=== PATIENT | female | born 1980 | race Caucasian/White ===

== ENCOUNTER → 2020-03-23 13:25 | Outpatient (BNVA) | payer SELFPAY | PROVIDERS: Family Provider Nurse Practitioner Family; PCP Nurse Practitioner Family; Visit Provider Nurse Practitioner | DX: M25.521 Pain in right elbow (principal) | CPT/HCPCS: 84550 ==

== ENCOUNTER → 2020-04-26 11:02 | Outpatient (BNVA) | payer SELFPAY | PROVIDERS: Family Provider Nurse Practitioner Family; PCP Nurse Practitioner Family; Visit Provider Internal Medicine | DX: R76.8 Other specified abnormal immunological findings in serum (principal); Z79.899 Other long term (current) drug therapy; Z11.59 Encounter for screening for other viral diseases; Z11.1 Encounter for screening for respiratory tuberculosis; M32.9 Systemic lupus erythematosus, unspecified; D86.9 Sarcoidosis, unspecified; M25.50 Pain in unspecified joint; F17.210 Nicotine dependence, cigarettes, uncomplicated; Z79.52 Long term (current) use of systemic steroids | CPT/HCPCS: 36415; 80053; 82550; 82955; 84443; 85651; 86140; 86480; 86704; 86803; 86812; 87340; 96372; 99204; J1030 ==

== ENCOUNTER → 2020-05-20 13:43 | Outpatient (BNVA) | payer SELFPAY | PROVIDERS: Family Provider Nurse Practitioner Family; PCP Nurse Practitioner Family; Visit Provider Internal Medicine | DX: R76.8 Other specified abnormal immunological findings in serum (principal); R70.0 Elevated erythrocyte sedimentation rate; Z79.899 Other long term (current) drug therapy; Z79.52 Long term (current) use of systemic steroids; F17.210 Nicotine dependence, cigarettes, uncomplicated; M06.9 Rheumatoid arthritis, unspecified; M32.9 Systemic lupus erythematosus, unspecified; D86.9 Sarcoidosis, unspecified | CPT/HCPCS: 99214 ==

== ENCOUNTER → 2020-11-18 15:10 | Outpatient (BNVA) | payer SELFPAY | PROVIDERS: Family Provider Nurse Practitioner Family; PCP Nurse Practitioner Family; Visit Provider Internal Medicine | DX: M06.9 Rheumatoid arthritis, unspecified (principal); R70.0 Elevated erythrocyte sedimentation rate; R76.8 Other specified abnormal immunological findings in serum; F17.210 Nicotine dependence, cigarettes, uncomplicated | CPT/HCPCS: 99214 ==

== ENCOUNTER → 2021-03-21 08:28 | Outpatient (BNVA) | payer SELFPAY | PROVIDERS: Family Provider Nurse Practitioner Family; PCP Nurse Practitioner Family; Visit Provider Internal Medicine | DX: M06.9 Rheumatoid arthritis, unspecified (principal); R70.0 Elevated erythrocyte sedimentation rate; R76.8 Other specified abnormal immunological findings in serum; Z79.899 Other long term (current) drug therapy; Z79.52 Long term (current) use of systemic steroids; F17.200 Nicotine dependence, unspecified, uncomplicated | CPT/HCPCS: 99213; 99214 ==

== ENCOUNTER 2021-09-05 08:49 | Outpatient (CLI) | payer OTHER, SELFPAY ==
--- NOTE | 2021-09-05 09:22 | MM_ITS ---
WS: [id number] BILATERAL DIGITAL SCREENING MAMMOGRAPHY WITH CAD CLINICAL INFORMATION: SCREENING HISTORY: Screening mammogram. No current complaints. COMPARISON: None. TECHNIQUE: Bilateral CC and MLO views. FINDINGS: Scattered fibroglandular densities bilaterally. Slightly spiculated 9 mm focal asymmetric density upp er outer RIGHT breast. Recommend further evaluation with spot compression views and ultrasound. Incidental punctate calcifications LEFT breast. Additional 6 mm asymmetric density upper outer LEFT b reast best seen on the MLO view.Recommend spot compression views and ultrasound in further evaluation . MM/[id number] IMPRESSION: BI-RADS: 0-Incomplete: Need additional imaging evaluation FOLLOW UP: Need Additional Imaging Recommend further evaluation RIGHT and LEFT breast with spot compression views and ultrasound.
== END 2021-09-05 08:50 | disposition home or self-care (01) ==
LOC: RADSHAW 08:50
PROVIDERS: Family Provider Nurse Practitioner Family; PCP Nurse Practitioner Family; Visit Provider Nurse Practitioner Family
DX: Z12.31 Encounter for screening mammogram for malignant neoplasm of breast (principal)
CPT/HCPCS: 77067

== ENCOUNTER 2021-10-10 08:00 | Outpatient (CLI) | payer OTHER, SELFPAY ==
--- NOTE | 2021-10-10 08:07 | MM_ITS ---
WS: [id number] BILATERAL 3D TOMOSYNTHESIS DIGITAL MAMMOGRAPHY WITH CAD CLINICAL INFORMATION: ABNORMAL/INCONCLUSIVE FINDING ON IMAGING OF BREAST COMPARISON: September 05, 2021 TECHNIQUE: 9 views of the bilateral breasts were obtained. FINDINGS: Scattered fibroglandular densities of the right breast. 9 mm asymmetric density upper outer RIGHT see ast is unchanged. Ultrasound is pending. Additional stable 6 mm asymmetric density upper outer LEFT b reast. Ultrasound is pending. ULTRASOUND BREAST BILATERAL TECHNIQUE: Ultrasound bilateral breast focused area of concern. CLINICAL INFORMATION: ABNORMAL/INCONCLUSIVE FINDING ON IMAGING OF BREAST COMPARISON: None. FINDINGS: RIGHT BREAST: Ultrasound RIGHT breast 900-12:00 position demonstrates 5 x 6 x 4 mm simple cyst at the 9:00 position. LEFT BREAST: Ultrasound LEFT breast at the 12 to 3:00 position. Small simple cysts measuring 8 x 8 x 3 mm and 9 x 7 x 4 mm at the 12:00 and 100 positions respectively. MM/[id number] IMPRESSION: BI-RADS: 2-Benign FOLLOW UP: 1 Year Follow-up Recommend return to annual screening mammography.
== END 2021-10-10 08:01 | disposition home or self-care (01) ==
PROVIDERS: PCP Nurse Practitioner Family; Visit Provider Nurse Practitioner Family
DX: R92.8 Other abnormal and inconclusive findings on diagnostic imaging of breast (principal)
CPT/HCPCS: 76642; 77062

== ENCOUNTER 2023-08-13 19:59 | Inpatient (IN) | payer MEDICAID, SELFPAY ==
[2023-08-13 20:05] VITALS: BP 157/93; PULSE 112; RESP 18; O2SAT 98; BMI 27.4
--- NOTE | 2023-08-13 20:38 | ECG_ITS ---
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 Measurements Intervals [place] Rate: 93 P: 66 WV: 140 QRS: 59 QRSD: 85 T: 24 QT: 339 QTc: 424 Interpretive Statements SINUS RHYTHM WITH SINUS ARRHYTHMIA MODERATE ST DEPRESSION [0.05+ mV ST DEPRESSION] No previous ECG available for comparison Electronically Signed On 08-14-2023 5:54:46 ACCREDITATION MANAGER by Nabil Serrano M.D. [email or web address] [facility] womenSnakk Media/store/NU/[id number] f
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
[2023-08-13 20:57] LABS: Basophils # 0.1 10^3/uL (0.0-0.1); Basophils % 0.4 %; Eosinophils # 0.1 10^3/uL (0.0-0.8); Eosinophils % 0.4 %; Hematocrit 43.2 % (36-47); Lymphocytes # 2.1 10^3/uL (0.8-4.8); Lymphocytes % 15.1 %; Mean Corpuscular HGB Conc 32.4 g/dL (30-55); Mean Corpuscular Hemoglobin 28.6 pg (27-33); Mean Corpuscular Volume 88.3 fl (85-98); Mean Platelet Volume 8.4 fL (7.4-10.4); Monocytes # 0.7 10^3/uL (0.2-0.9); Monocytes % 5.2 %; Neutrophils % 78.5 %; Nucleated Red Blood Cells % 0 %; Platelet Count 426 10^3/cmm (157-399); Red Blood Count 4.89 10^6/uL (3.85-5.65); Red Cell Distribution Width 13.6 % (12.1-15.1); White Blood Count 13.74 10^3/uL (3.29-11.43)
[2023-08-13 20:59] LABS: Add Urine Microscopic? NO; Charge for UA Resulting for Rev
--- NOTE | 2023-08-13 21:05 | PC.NURSE ---
Anne Marie and Jeancarlos pulled out of the pyxis for the patient, who had been agreeable with Dr Fisher to take. When this nurse went into the room with medication, patient refused medication, stating that she didn't want it. Dr Fisher notified. Medication wasted in Pyxis, witnessed by Taylor RECIO.
[2023-08-13 21:08] LABS: Bilirubin Urine Neg (Negative); Blood Urine Neg (Negative); Glucose Urine UA Norm (Normal); Ketones Urine 1+ (Negative); Leukocyte Esterase Urine Negative (Negative); Nitrate Urine Negative (Negative); Protein Urine Neg (Negative); Specific Gravity, Urine 1.005 (1.005-1.030); Urine Appearance Clear (CLEAR); Urine Color Yellow (Yellow); Urobilinogen Urine Norm (Negative); pH Urine 7 (5-7)
[2023-08-13 21:10] LABS: Amphetamines Screen Urine Negative (Negative); Barbiturates Screen Urine Negative (Negative); Benzodiazepines Screen Urine Negative (Negative); Cocaine Screen Urine Negative (Negative); Opiate Screen Urine Negative (Negative); PCP Screen Urine Negative (Negative); THC Screen Urine Positive (Negative)
[2023-08-13 21:16] LABS: Alanine Aminotransferase 12 U/L (0-33); Albumin Level 4.4 g/dL (3.5-5.2); Alkaline Phosphatase 93 U/L (35-105); Anion Gap 16.6 (5-19); Aspartate Amino Transferase 12 U/L (0-32); Blood Urea Nitrogen 8 mg/dL (6-20); Carbon Dioxide 22 mmol/L (22-29); Chloride 103 mmol/L (98-107); Globulin 3.4 g/dL (1.3-4.6); Glomerular Filtration Rate 109.6 mL/min (90-130); Glucose 131 mg/dL (65-115); Osmolality Calculated 286 mOsm/kg (285-295); Potassium 3.6 mmol/L (3.5-5.1); Sodium 138 mmol/L (136-145); Total Bilirubin 0.5 mg/dL (0.15-1.2); Total Protein 7.8 g/dL (6.6-8.7)
[2023-08-13 21:21] LABS: Acetaminophen < 5.0 ug/mL (10-30); Alcohol Level < 10 mg/dL (0-10); Salicylate < 0.3 mg/dL (3-10)
[2023-08-13 21:44] VITALS: BP 144/68; PULSE 93; RESP 18; TEMP 36.3; O2SAT 98
[2023-08-13 22:00] VITALS: BP 144/68; PULSE 93; RESP 18; TEMP 36.3; O2SAT 98
--- NOTE | 2023-08-13 22:20 | PC.NURSE ---
96 Hour Involuntary Hold Patient Rights have been read to patient and a copy of the same has been given to her. Diamond Die Maker Radha Mg was present at bedside at the time of presentation of Rights.
--- NOTE | 2023-08-13 22:27 | PC.NURSE ---
Report called to Sharon RECIO in NPU. All questions and concerns addressed at time of report.
[2023-08-14 06:00] VITALS: BP 145/80; PULSE 90; RESP 18; TEMP 36.6; O2SAT 94
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
--- NOTE | 2023-08-14 12:24 | PC.NURSE ---
Pt's spouse called and stated that he would like to speak with the Doctor. Spouse stated that the pt has needed help for a while now. Royce Johnson [phone].
[2023-08-14 14:00] VITALS: RESP 18
[2023-08-14 19:48] VITALS: BP 121/85; PULSE 69; RESP 18; TEMP 36.5; O2SAT 98
[2023-08-15 06:00] VITALS: BP 132/86; PULSE 109; RESP 18; TEMP 36.6; O2SAT 99
[2023-08-15 13:07] VITALS: BP 126/85; PULSE 81; RESP 16; TEMP 36.9; O2SAT 99
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
[2023-08-15 20:06] VITALS: BP 139/87; PULSE 93; RESP 18; TEMP 36.3; O2SAT 97
[2023-08-16 05:59] VITALS: BP 126/86; PULSE 82; RESP 18; TEMP 36.4; O2SAT 97
--- NOTE | 2023-08-16 08:09 | PC.NURSE ---
Patient stated that she is ok . Patient denies Si, HI, AVH, depression, and anxiety during morning assessment.
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
[2023-08-16 14:00] VITALS: BP 132/83; PULSE 62; RESP 16; TEMP 36.9; O2SAT 99
[2023-08-16] MEDS: nicotine 2 mg Gum BUCCAL (16:13)
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
[2023-08-16 20:43] VITALS: BP 132/87; PULSE 84; RESP 16; TEMP 36.7; O2SAT 97
[2023-08-17 06:00] VITALS: BP 125/85; PULSE 92; RESP 18; TEMP 36.4; O2SAT 99
--- NOTE | 2023-08-17 07:58 | PC.NURSE ---
During morning nursing shift assessment, patient denies SI, HI, AVH, depression and anxiety. Patient appears to be blocking. Patient says that she is good.
[2023-08-17] MEDS: nicotine 2 mg Gum BUCCAL (12:33)
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
[2023-08-17 14:43] VITALS: BP 125/85; PULSE 92; RESP 18; TEMP 36.4; O2SAT 99
== END 2023-08-17 15:06 | disposition home or self-care (01) | DRG 885 ==
LOC: ER 21:44 → NP 22:14
PROVIDERS: Admitting Provider Psychiatry & Neurology Psychiatry; Emergency Provider Emergency Medicine; PCP Nurse Practitioner Family; Visit Provider Psychiatry & Neurology Psychiatry
DX: F29 Unspecified psychosis not due to a substance or known physiological condition (principal); R45.851 Suicidal ideations; F17.210 Nicotine dependence, cigarettes, uncomplicated; F32.A Depression, unspecified; R45.850 Homicidal ideations; F12.10 Cannabis abuse, uncomplicated
CPT/HCPCS: 36415; 80053; 80306; 80307; 81003; 85025; 93005; 97150; 97165; 99285